=== PATIENT | female | born 1950 | race Caucasian/White ===

== ENCOUNTER → 2021-02-05 10:20 | Outpatient (CLI) | payer MEDICARE, SELFPAY ==
--- NOTE | ~2021-02-05 | XR_ITS ---
EXAMINATION: XR chest 2V EXAM DATE: 02/05/2021 10:36 INDICATION: R05.9 - Cough, unspecified; non smoker . TECHNIQUE: Frontal and lateral projections of the chest obtained and reviewed. There is no prior kevin dy for comparison. FINDINGS: The lungs are clear. There are no pleural effusions. The cardiomediastinal silhouette is within normal limits. There is no pneumothorax suspected. The bones and soft tissues are unremarkab le. There is tortuosity of the aorta. IMPRESSION: No acute cardiopulmonary findings. Reviewed, dictated and finalized at location B. NEER OF SYSTEM DEVELOPMENT
== END ==
PROVIDERS: PCP Internal Medicine; Visit Provider Internal Medicine
DX: R05.9 Cough, unspecified (principal)
CPT/HCPCS: 71046

== ENCOUNTER 2023-05-05 09:29 | Outpatient (CLI) | payer MEDICARE, SELFPAY ==
--- NOTE | ~2023-05-05 | MM_ITS ---
EXAMINATION: MM screening sathya BI w bucky HISTORY: Screening mammogram TECHNIQUE: Craniocaudal and mediolateral oblique 3-D tomosynthesis images were obtained and synthetic 2-D images were generated. CAD analysis was submitted and interpreted. COMPARISON: 02/02/2018 bilateral screening mammogram BREAST PARENCHYMAL COMPOSITION: There are scattered areas of fibroglandular density. FINDINGS: There is no evidence of suspicious mass, calcification, or architectural distortion to sugg est malignancy in either breast. There has been no suspicious interval change. IMPRESSION: 1. No mammographic evidence of malignancy. 2. Recommend routine screening mammography in one year. BI-RADS Category 1: Negative Reviewed, dictated and finalized at location A.
== END 2023-05-05 09:30 | disposition home or self-care (01) ==
PROVIDERS: PCP Family Medicine; Visit Provider Family Medicine
DX: Z12.31 Encounter for screening mammogram for malignant neoplasm of breast (principal)
CPT/HCPCS: 77063; 77067

== ENCOUNTER 2024-05-30 09:06 | Outpatient (CLI) | payer MEDICARE, SELFPAY ==
--- NOTE | ~2024-05-30 | DEXA_ITS ---
Bone Density Report Name: PRAVIN JIN Age: 74 Sex: Female Ethnicity: White Date of : 1950 Indication: postmenopausal; screening for osteoporosis; Referring Provider: SOPHIE JEAN Study: Bone densitometry was performed. Exam Date: May 30, 2024 Accession number: [id number] Bone Density: Region BMD T-score Z-score Classification AP Spine(L1-L4) 0.769 -2.5 -0.2 Osteoporosis Femoral Neck (Left) 0.587 -2.4 -0.4 Osteopenia Total Hip (Left) 0.678 -2.2 -0.5 Osteopenia Femoral Neck (Right) 0.541 -2.8 -0.8 Osteoporosis Total Hip (Right) 0.618 -2.7 -1.0 Osteoporosis Total Hip Mean 0.648 -2.5 -0.8 Osteopenia World Health Organization criteria for BMD impression classify patients as: Normal (T-score at or above -1.0), Osteopenia (T-score between -1.0 and -2.5), or Osteoporosis (T-score at or below -2.5). 10-year Fracture Risk: FRAX not reported because: Some T-score for Spine Total or Hip Total or Femoral Neck at or below -2.5 Clinical Information Provided by Patient: Has used the following medications: Actonel (i.e. risedronate) Patient maximum height was 65.0 Menopause Age: 51 No regular weight bearing exercise Drinks caffeinated beverages Onset of menses at age 14 Number of children 2 Impression: The patient has osteoporosis, based on the Right Femoral Neck T-score. Discussion: INCREASED RISK OF FRACTURE. BONE DENSITY IS UNDESIRABLY LOW AT ONE OR MORE SKELETAL SITES, CONSISTENT WITH POSTMENOPAUSAL OSTEOPOROSIS. This patient's lowest T-score meets the World Health Organization's (WHO) criteria for osteoporosis at one or more sites (T-score -2.5 or below). In untreated patients, the risk of osteoporotic fracture increases approximately two-fold for each 1.0 SD decrease in T-score. Low bone density is not the only risk factor for fracture; also consider factors such as patient's age, frailty or poor health, risk of falling, risk of injury, previous osteoporotic fracture, family history of osteoporosis, cigarette smoking, low body weight, etc. Not everyone with low bone mineral density has osteoporosis; osteomalacia and other metabolic bone disorders should also be considered. Patients who have osteoporosis should be evaluated for specific diseases and conditions (secondary causes) that may cause or contribute to bone loss. The [place] Association of Clinical Endocrinologists (AACE) and National Osteoporosis Foundation (NOF) recommend pharmacologic intervention for all postmenopausal women whose T-score is in this range. The patient should follow a healthful lifestyle (good nutrition with adequate calcium and vitamin D, and appropriate weight-bearing exercise). Follow-Up: Consider a repeat BMD and Vertebral Fracture Assessment (VFA) exam in 2 years or sooner if medically necessary, to reassess this patient's status. Reported by: DALE on 05/30/2024 9:54:00 AM. Reviewed, dictated and finalized at location ANuvia ROMAN
--- NOTE | ~2024-05-30 | MM_ITS ---
EXAMINATION: MM screening sathya BI w bucky HISTORY: Screening TECHNIQUE: Craniocaudal and mediolateral oblique 3-D tomosynthesis images were obtained and synthetic 2-D images were generated. CAD analysis was submitted and interpreted. COMPARISON: Comparison to multiple prior studies sequentially, with oldest reviewed study dated 01/23. BREAST PARENCHYMAL COMPOSITION: Not dense: There are scattered areas of fibroglandular density. FINDINGS: There is no evidence of suspicious mass, calcification, or architectural distortion to sugg est malignancy in either breast. There has been no suspicious interval change. IMPRESSION: 1. No mammographic evidence of malignancy. 2. Recommend routine screening mammography in one year. BI-RADS Category 1: Negative Reviewed, dictated and finalized at location A.
--- OUTSIDE RECORDS SUMMARY | 2024-05-30 09:49 | XMS_ITS | Clinical Summary ---
Author Organization [facility] Physician Office Building [address] [place] [id number] Care Team Providers Care Head Of Precision Targeting Name Role Phone Dalton Adams MD Primary Care Provider [phone] [phone] Allergies No known active allergies Medications sod picosulf-mag ox-citric ac (Clenpiq) 10 mg-3.5 gram- 12 gram/175 mL solution Take as directed 350 mL 04/21/2023 Active acetaZOLAMIDE (DIAMOX) 250 mg tabletIndicatio ns:spinal cerebellar ataxia Take 1 tablet (250 mg total) by mouth 2 (two) times a day Active Active Problems Problem Noted Date Diagnosed Date Encounter for screening colonoscopy 04/21/2023 Screen for colon cancer 10/19/2017 Overview (10/19/2017): Added automatically from request for surgery [id number] Heart murmur 08/12/2014 Edema of lower extremity 08/11/2014 Abnormal gait 03/18/2014 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 Vitamin D deficiency disease 09/30/2013 Muscle weakness of extremity 05/26/2013 Hypertension 04/26/2013 Overview (05/28/2016): Hypertension Surgical History Surgery Date Site/Laterality Comments BACK SURGERY 02/23/2010 - 02/22/2011 back surgery SECTION section SECTION BACK SURGERY Back Surgery BACK SURGERY Lower Back Surgery - DIAM stabilizer surgery L4-L5 (Added by TW Conv) COLONOSCOPY last colonoscopy 2008 COLONOSCOPY 05/25/2023 Medical History Medical History Date Comments Ataxia SPINAL CEREBELLA R ATAXIA Family History Medical History Relation Name Comments Brain cancer Father Brain tumor - ( Added by TW Conv) Stroke Mother Family history of cerebrovascular accident - (Added by TW Conv) Stroke Other Family history of Stroke; Relation Name Status Comments Father Mother Other Social History Tobacco Use Types Packs/Day Years Used Date Smoking Tobacco: Never Smokeless Tobacco: Never Alcohol Use Standard Drinks/Week Comments No 0 (1 standard drink = 0.6 oz pur e alcohol) Personal Safety Answer Date Recorded Have you ever been in or are you currently in a harmful physical or emotional relationship or is someone making you feel afraid or unsafe? Denies 05/25/2023 Comments Unknown Sex and Gender Information Value Date Recorded Sex Assigned at Not on file Legal Sex Female 2:23 AM CLINICAL RN LIAISON Gender Identity Not on file Sexual Orientation Not on file Obstetrics History Last Filed Vital Signs Vital Sign Reading Time Taken Comments Blood Pressure 125/88 05/25/2023 9:20 AM CDT Pulse 76 05/25/2023 9:20 AM CDT Temperature 37.1 C (98.7 F) 05/25/2023 8:55 AM CDT Respiratory Rate 18 05/25/2023 9:20 AM CDT Oxygen Saturation 97% 05/25/2023 9:20 AM CDT Inhaled Oxygen Concentration - - Weight 86.2 kg (190 lb) 05/25/2023 8:15 AM CDT Height 165.1 cm (5' 5 ) 05/25/2023 8:15 AM CDT Body Mass Index 31.62 05/25/2023 8:15 AM CDT Plan of Treatment Health Maintenance Due Date Last Done Comments Depression Screening 1950 Fall Risk Assessment 1950 Hepatitis C Screening 1950 Osteoporosis Screening-Bone Density Scan 1950 DTaP/Tdap/Td Vaccine (1 - Tdap) 04/24/1962 Hepatitis B Screening 04/24/1969 Breast Cancer Screening-Mammogram 08/02/2013 013 Well Visit 65+ 04/24/2016 Zoster Vaccine (3 of 3) 03/06/2023 01/09/2023, 12/24 Covid-19 Vaccine ( season) 2023, 04/19/2020 Influenza Vaccine (Season Ended) 2024 11/27/19 23, 12/09/2021 Colon Cancer Screening-Colonoscopy 05/24/20332023, 11/09/2017 Pneumococcal vaccine 65+ Completed 12/09/2021 Colon Cancer Screening-CT Colonography Discontinued , 11/09/2017 Colon Cancer Screening-DNA Stool Discontinued 05/25/19 24, 11/09/2017 Colon Cancer Screening-FIT Discontinued 05/25/2023, Colon Cancer Screening-Sigmoidoscopy Discontinued 02/2023, 11/09/2017 Procedures Procedure Name Priority Date/Time Associated Diagnosis Comments COLONOSCOPY 05/25/2023 8:07 AM CDT SCREENING MAMMOGRAM Routine 08/02/2012 9 :28 AM CDT from Last 3 Months or Most Recently Relevant to Health Maintenance Results * Colonoscopy (05/25/2023 8:07 AM CDT) Anatomical Region Laterality Modality Other Narrative Procedure Note Mathew Frausto MD - 05/25/2023 8:07 AM CDT [facility] Endoscopy Lab Patient Name: Coral Story Procedure Date: 05/25/2023 8:07 AM Date of : 1950 Admit Type: Outpatient Age: 73 Gender: Female Note Status: Finalized Attending MD: Mathew Frausto M.D. Procedure Date: 05/25/2023 Procedure: Colonoscopy Indications: Screening for colorectal malignant neoplasm, Last colonoscopy: October 2017 Providers: Mathew Frausto M.D., Tiffanie Huggins, INSPECTOR PAWNSHOP DETAIL (Anesthesia Staff), Marly Nguyen RN, Venancio, Sr. Consultant Referring MD: Dalton Adams M.D. Medicines: Monitored Anesthesia Care Complications: No immediate complications. Estimated Blood Loss: Estimated blood loss: none. Procedure: Pre-Anesthesia Assessment: - Airway Examination: normal oropharyngeal airwayand neck mobility. - Respiratory Examination: clear to auscultation. - ASA Grade Assessment: III - A patient with severe systemic disease. - After reviewing the risks and benefits, thepatient was deemed in satisfactory condition to undergo the procedure. - The risks and benefits of the procedure and the sedation options and risks were discussed with the patient. All questions were answered and informed consent was obtained. After I obtained informed consent, the scope was passed under direct vision. Throughout theprocedure, the patient's blood pressure, pulse, and oxygen saturations were monitored continuously. The scopewas passed under direct vision. The Colonoscope was introduced through the anus and advanced to the the cecum, identified by the appendiceal orifice, ileocecal valve and palpation. The colonoscopy was performed with ease. The patient tolerated the procedure well. The quality of the bowelpreparation was good. The quality of the bowel preparation was evaluated using the BBPS ([place] Bowel Preparation Scale) with scores of: Right Colon = 2 (minoramount of residual staining, small fragments of stooland/or opaque liquid, but mucosa seen well), TransverseColon = 3 (entire mucosa seen well with no residual staining, small fragments of stool or opaqueliquid) and Left Colon = 3 (entire mucosa seen well with no residual staining, small fragments of stool oropaque liquid). The total BBPS score equals 8. The qualityof the bowel preparation was good. The bowelpreparation used was Clenpiq via split dose instruction. Bowel prep was administered using a split dose. Findings: The perianal and digital rectal examinations were normal. A few small-mouthed diverticula were found in the entire colon. The retroflexed view of the distal rectum and anal verge was normaland showed no anal or rectal abnormalities. Impression: - Diverticulosis in the entire examined colon. - The distal rectum and anal verge are normal on retroflexion view. - No specimens collected. Recommendation: - Discharge patient to home (ambulatory). - Repeat colonoscopy in 10 years for screening purposes. Procedure Code(s): --- Professional --- G0121, Colorectal cancer screening; colonoscopy on individual not meeting criteria for high risk Diagnosis Code(s): --- Professional --- Z12.11, Encounter for screening for malignantneoplasm of colon K57.30, Diverticulosis of large intestine without perforation or abscess without bleeding CPT copyright 2020 [employer]. All rights reserved. The codes documented in this report are preliminary and upon contour sander reviewmay be revised to meet current compliance requirements. Electronically signed by Mathew Frausto MD Mathew Frausto M.D. 05/25/2023 8:57:35 AM Number of Addenda: 0 Note Initiated On: 05/25/2023 8:07 AM Mathew Frausto MD ENDOSCOPY PROCEDURES Final Resul t * Screening Mammogram (08/02/2012 9:28 AM CDT) Anatomical Region Laterality Modality Breast N/A Mammography 08/02/2012 9:28 AM CDT Narrative 08/03/2012 12:00 PM CDT CHRIS MORGAN M.D. FINAL REPORT ACC# Date Time Exam [id number] Aug 02, 2012 09:28:00 BMV [id number] [place] Screening Mamm Technologist(s): Mari Dunne; ; EXAMINATION: Mammogram Findings: A Full-Field Digital Screening Mammogram was performed. Views obtained: bilateral craniocaudal; bilateral mediolateral oblique. Computer Aided Detection was performed with SquareClock 1.3 version 9.3. The present examination has been compared to prior imaging studies performed at [facility] on 08/04/2011 and 07/22/2007. There are scattered fibroglandular densities. There is no suspicious abnormality in either breast. IMPRESSION: Annual screening mammography is recommended. OVERALL FINAL ASSESSMENT: BI-RADS CATEGORY 1: Negative. Requested By: Yvrose Josue M.D. Dictated By: CHRIS MORGAN M.D. on Aug 03 2012 12:00P This document has been electronically signed by: CHRIS MORGAN M.D. on Aug 03 2012 12:00P Procedure Note Provider, MD Zoila - 06/20/2016 CHRIS MORGAN M.D. FINAL REPORT ACC# Date Time Exam [id number] Aug 02, 2012 09:28:00 BMV [id number] [place] Screening Mamm Technologist(s): Mari Dunne; ; EXAMINATION: Mammogram Findings: A Full-Field Digital Screening Mammogram was performed. Views obtained: bilateral craniocaudal; bilateral mediolateral oblique. Computer Aided Detection was performed with SquareClock 1.3 version 9.3. The present examination has been compared to prior imaging studies performed at [facility] on 08/04/2011 and 07/22/2007. There are scattered fibroglandular densities. There is no suspicious abnormality in either breast. IMPRESSION: Annual screening mammography is recommended. OVERALL FINAL ASSESSMENT: BI-RADS CATEGORY 1: Negative. Requested By: Yvrose Josue M.D. Dictated By: CHRIS MORGAN M.D. on Aug 03 2012 12:00P This document has been electronically signed by: CHRIS MORGAN M.D. on Aug 03 2012 12:00P us Historical Provider MD COLE MAMMO PROCEDURES Sandee l Result from Last 3 Months or Most Recently Relevant to Health Maintenance Insurance [facility] MEDICARE ADVANTAGE [facility] CHOICE PLUS [facility] [place] [address] [facility] [place] [address] Care Teams Head Of Precision Targeting Relationship Specialty Start Date End Date Dalton Adams MD PCP - General Family Practice 05/12/23
--- OUTSIDE RECORDS SUMMARY | 2024-05-30 09:49 | XMS_ITS | Clinical Summary ---
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 Gender Identity Not on file Sexual Orientation Not on file Plan of Treatment Health Maintenance Due Date Last Done Comments Colorectal Cancer Screening Colonoscopy (10 Years) 1950 Hepatitis C 04/24/1969 DTaP, Tdap and Td Vaccines ( 1 - Tdap) 04/24/1970 Mammogram Screening 1991 Zoster Vaccines (1 of 2) 04/24/2001 Dexa Scan (General) 04/24/2016 Pneumococcal Vaccine: 65+ Ye ars (1 of 1 - PCV) 04/24/2016 COVID-19 Vaccine ( - 2023-2 5 season) 2023 RSV Immunization or 60+ Years (1 - 1-dose 75+ series) 04/24/2026 Meningococcal B Vaccine Aged Out No l onger eligible based on patient's age to complete this topic Meningococcal Vaccine Aged Out No marlo lorelei eligible based on patient's age to complete this topic RSV Immunizations Under 20 Months Aged Out No longer eligible based on patient's age to complete this topic
--- OUTSIDE RECORDS SUMMARY | 2024-05-30 09:49 | XMS_ITS | Clinical Summary ---
Author Organization [facility] [employer] Address [address] [place] [address] Care Team Providers Care Rail Engineer Name Role Phone Dalton Adams MD Primary Care Provider [phone] [phone] Source Comments [facility] [employer]non-owned Affiliates and Associated Physician Practices is amultiple site organization consisting of ambulatory clinics and hospital sitesin [place], [place], [place] and [place]. This disclosure is being madepursuant to the Care Everywhere program and may not contain all information available regarding this patient. Last updated 17.[facility] [employer] Allergies No known active allergies Medications * Be aware that medications may not be up to date on this document. Alwaysverify current medications with the patient. Medication Sig Dispensed Refills Start Date End Date Status vitamin D, ergocalciferol, (Drisdol) 1.25 MG (07496 UT) capsule Take 1 (one) capsule by mouth every 7 days 01/11/2023 Active acetaZOLAMIDE (Diamox) 250 MG tabletIndications:S campbell cerebellar ataxia Take 1 (one) tablet by mouth 2 times daily Reasons: Spino cerebellar ataxia 180 tablet 5 10/28/2023 Active Encounters Date Type Department Care Team Description 03/03/2024 Travel from Last 3 Months Social History Tobacco Use Types Packs/Day Years Used Date Smoking Tobacco: Never Smokeless Tobacco: Never Sex and Gender Information Value Date Recorded Sex Assigned at Not on file Gender Identity Not on file Sexual Orientation Not on file Last Filed Vital Signs Vital Sign Reading Time Taken Comments Blood Pressure 155/82 10/28/2023 8:07 AM CDT Pulse 77 10/28/2023 8:07 AM CDT Temperature 36.4 C (97.5 F) 04/28/2023 7:57 AM BANKING REPRESENTATIVE Respiratory Rate - - Oxygen Saturation 98% 10/28/2023 8:07 AM CDT Inhaled Oxygen Concentration - - Weight 88 kg (194 lb) 04/28/2023 7:57 AM BANKING REPRESENTATIVE Height 162.6 cm (5' 4 ) 02/24/2023 8:03 AM BANKING REPRESENTATIVE Body Mass Index 33.3 02/24/2023 8:03 AM BANKING REPRESENTATIVE Plan of Treatment Upcoming Encounters Date Type Department Care Team (Late st Contact Info) Description 11/02/2024 10:00 AM CDT Office Visit [facility] - Neurology [address] [facility] [facility] [address], [place] [place] [address] Adi Higuera APRN-SERVICE PROMOTER SALESPERSON [address] [place] [id number] Health Maintenance Due Date Last Done Comments BONE DENSITY TESTING 1950 COLOGUARD (AGES 45-75) - COL ON CA SCREENING [address] COLON[address]AP[address] - COLON CA SCREENING 1950 FIT - COLON CA SCREENING 1950 FLEX SIG - COLON CA SCREENING 1950 LIPID TESTING 1950 HEPATITIS C SCREENING 04/20/1969 DTAP/TDAP/TD VACCINES (1 - Tdap) 04/24/1970 PNEUMOCOCCAL VACCINE 50+ (1 of 1 - PCV) 04/24/2001 ZOSTER VACCINE (1 of 2) 04/24/2001 Respiratory Syncytial Virus (RSV) Vaccine Pt: or over 60 yrs (1 - Risk 60-74 years 1-dose series) 2011 MAMMOGRAM 08/02/2014 08/02/2012 COVID-19 VACCINE ( - 2023-2 5 season) 2023 INFLUENZA VACCINE (#1) 2023 DEPRESSION SCREENING 02/24/2024 MEDICARE AWV CALENDAR YEAR 2024 COLONOSCOPY - COLON CA SCREENING 05/24/2033 05/25/2023, 11/09/2017 Colorectal Cancer Screening 05/24/2033 HEPATITIS B VACCINE Aged Out No longe r eligible based on patient's age to complete this topic HIB VACCINE Aged Out No longer eligi ble based on patient's age to complete this topic HPV VACCINE Aged Out No longer eligi ble based on patient's age to complete this topic MENINGOCOCCAL (Group B) VACCINE SHARED DECISION-MAKING Aged Out No longer eligible based on patient's age to complete this topic MENINGOCOCCAL GROUPS A/C/Y/W VACCINE Aged Out No longer eligible b ased on patient's age to complete this topic Care Teams Rail Engineer Relationship Specialty Start Date End Date Dalton Adams MD [address] [facility] [place] [phone] PCP - General Family Medicine 02/24/23
--- OUTSIDE RECORDS SUMMARY | 2024-05-30 09:49 | XMS_ITS | Referral Summary ---
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 Vitamin D deficiency disease 09/30/2013 Muscle weakness of extremity 05/26/2013 Hypertension 04/26/2013 Overview (05/28/2016): Hypertension Social History Tobacco Use Types Packs/Day Years [...] on file 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 Gender Identity Not on file Sexual Orientation [...] 05/25/2023 8:15 AM CDT Plan of Treatment Not on file Procedures Procedure Name Priority Date/Time Associated Diagnosis Comments COLONOSCOPY 05/25/2023 8:07 AM CDT SCREENING MAMMOGRAM Routine 08/02/2012 9 :28 AM CDT from Last 3 Months or Most Recently Relevant to Health Maintenance Results * Colonoscopy (05/25/2023 8:07 AM CDT) Anatomical Region Laterality Modality Other Narrative Procedure Note Mathew Frausto MD - 05/25/2023 8:07 AM CDT [facility] Endoscopy Lab Patient Name: Coral Story Procedure Date: 05/25/2023 8:07 AM Date of : 1950 Admit Type: Outpatient Age: 73 Gender: Female Note Status: Finalized Attending MD: Mathew Frausto M.D. Procedure Date: 05/25/2023 Procedure: Colonoscopy Indications: Screening for colorectal malignant neoplasm, Last colonoscopy: October 2017 Providers: Mathew Frausto M.D., Tiffanie Huggins CRNA (Anesthesia Staff), Marly Nguyen RN, Venancio, Disability Representative Referring MD: Dalton Adams M.D. Medicines: Monitored [...] bowel preparation was evaluated using the BBPS ([place] Bowel Preparation Scale) with scores of: Right [...] or abscess without bleeding CPT copyright 2020 [employer]. All rights reserved. The codes documented in this report are preliminary and upon vocal music instructor reviewmay be revised to meet current compliance requirements. Electronically signed by Mathew Frausto MD Mathew Frausto M.D. 05/25/2023 8:57:35 AM Number of Addenda: 0 Note Initiated On: 05/25/2023 8:07 AM us Mathew Frausto MD ENDOSCOPY PROCEDURES Final Resul t * Screening Mammogram (08/02/2012 9:28 AM CDT) Anatomical Region Laterality Modality Breast N/A Mammography 08/02/2012 9:28 AM CDT Narrative 08/03/2012 12:00 PM CDT CHRIS MORGAN M.D. FINAL REPORT ACC# Date Time Exam [id number] Aug 02, 2012 09:28:00 BMV [id number] [place] Screening Mamm Technologist(s): Mari Dunne; ; EXAMINATION: Mammogram Findings: A Full-Field Digital Screening Mammogram was performed. Views obtained: bilateral craniocaudal; bilateral mediolateral oblique. Computer Aided Detection was performed with Altair Prep 1.3 version 9.3. The present examination has been compared to prior imaging studies performed at [facility] on 08/04/2011 and 07/22/2007. [...] M.D. FINAL REPORT ACC# Date Time Exam [id number] Aug 02, 2012 09:28:00 BMV [id number] [place] Screening Mamm Technologist(s): Mari Dunne; ; EXAMINATION: Mammogram Findings: A Full-Field Digital Screening Mammogram was performed. Views obtained: bilateral craniocaudal; bilateral mediolateral oblique. Computer Aided Detection was performed with Altair Prep 1.3 version 9.3. The present examination has been compared to prior imaging studies performed at [facility] on 08/04/2011 and 07/22/2007. There are scattered fibroglandular densities. There is no suspicious abnormality in either breast. IMPRESSION: Annual screening mammography is recommended. OVERALL FINAL ASSESSMENT: BI-RADS CATEGORY 1: Negative. Requested By: Yvrose Josue M.D. Dictated By: CHRIS MORGAN M.D. on Aug 03 2012 12:00P This document has been electronically signed by: CHRIS MORGAN M.D. on Aug 03 2012 12:00P Historical Provider MD COLE MAMMO PROCEDURES Sandee l Result from Last 3 Months or Most Recently Relevant to Health Maintenance [facility] Address: [address] [address] [place] [address] [facility] CHOICE [facility]US [facility] H[facility]/PPO Address: [address] [address] [place] [address] [facility]IC[facility]AGE [facility] Address: [address] [address] [place] [address] [facility]ICE PLUS [facility]/PPO Address: [address] [address] [place] [address] Care Teams Picture Copyist Relationship Specialty Start Date End Date Dalton Adams MD PCP - General Family Practice 05/12/23
--- OUTSIDE RECORDS SUMMARY | 2024-05-30 09:49 | XMS_ITS | Encounter Summary ---
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
== END 2024-05-30 09:07 | disposition home or self-care (01) ==
LOC: ANHIMG 09:09
PROVIDERS: PCP Family Medicine; Visit Provider Family Medicine
DX: Z12.31 Encounter for screening mammogram for malignant neoplasm of breast (principal); N95.9 Unspecified menopausal and perimenopausal disorder; M81.0 Age-related osteoporosis without current pathological fracture; M85.852 Other specified disorders of bone density and structure, left thigh; M85.851 Other specified disorders of bone density and structure, right thigh
CPT/HCPCS: 77063; 77067; 77080

== ENCOUNTER 2024-08-25 12:12 | Outpatient (CLI) | payer MEDICARE, SELFPAY ==
--- NOTE | ~2024-08-25 | XR_ITS ---
XR abdomen/kub 1V Ordering provider: Dalton Adams MD History: . K21.9 - Gastro-esophageal reflux disease without esophagitis . Comparison: None. FINDINGS: BOWEL: Nonobstructive bowel gas pattern. ORGANOMEGALY: None. SIGNIFICANT PATHOLOGIC CALCIFICATIONS: None. OTHER: No free air is seen under the diaphragm. Mild dextroscoliosis. Degenerative the spine. Metallic artifacts are projected in the mid abdomen. IMPRESSION: NO ACUTE ABDOMINAL FINDINGS. Reviewed, dictated and finalized at location A.
== END 2024-08-25 12:13 | disposition home or self-care (01) ==
LOC: MICIMG 12:13
PROVIDERS: PCP Family Medicine; Visit Provider Family Medicine
DX: K21.9 Gastro-esophageal reflux disease without esophagitis (principal)
CPT/HCPCS: 74018

== ENCOUNTER 2024-09-08 02:22 | Day surgery (SDC) | payer MEDICARE, SELFPAY ==
[2024-09-02 15:26] VITALS: BMI 33.7
--- OUTSIDE RECORDS SUMMARY | 2024-09-08 02:34 | XMS_ITS | Continuity of Care Document ---
Author Organization [facility] Address [address] [place] [address] [address] [place] [address] Phone Care Team Providers Care Banking And Finance Instructor Name Role Phone Leonardo Rios Unavailable Unavailable Advance Directives Directive Yes / No Effective Date File Name No Information Encounters Encounter Description Practice Location Reason(s) For Visit Diagnoses Date Provider Providers Copied on Encounter [facility], [address], [place], [place], [id number], [place] tel:[phone] [facility] No Information Julian-0 [phone] Doisy Edward. [address] , [address], [place], [address], [place]. tel:[phone] Family History Family Member Type Diagnosis Age At Onset No Information Payers Payer name Insurance type Covered republican ID Authoriza tion(s) No Information Social History Type Description Quantity Date Captured Comments Sex Female Smoking Status No Information Chief Complaint And Reason For Visit No Information Reason For Referral Reason For Referral No Information History Of Present Illness Encounter Date Complaint History Of Prese nt Illness No Information Functional Status Date Functional Assessmen t No Information Instructions Date Instruction Additional Infor mation No Information Assessments Type Assessment Date No Information Patient Care Teams Name Effective Dates (start - stop) Status Members No Information
--- OUTSIDE RECORDS SUMMARY | 2024-09-08 02:34 | XMS_ITS | Clinical Summary ---
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
--- OUTSIDE RECORDS SUMMARY | 2024-09-08 02:36 | XMS_ITS | Referral Summary ---
Author Organization [facility] [address] [place] [address] Care Team Providers Care Cylinder Die Machine Operator Name Role Phone Dalton Adams MD Primary Care Provider [phone] Allergies No known active allergies Medications sod [...] (10/19/2017): Added automatically from request for surgery [id number] Heart murmur 08/12/2014 Edema of lower extremity [...] on file Legal Sex Female 2:23 AM CHEMIST STEROIDS Gender Identity Not on file Sexual Orientation [...] 8:15 AM CDT Height 165.1 cm (5' 5) 05/25/2023 8:15 AM CDT Body Mass Index [...] Frausto MD - 05/25/2023 8:07 AM CDT [facility] Patient Name: Coral Story Procedure Date: 05/25/2023 8:07 AM Date of : 1950 Admit Type: Outpatient Age: 73 Gender: Female Note Status: Finalized Attending MD: Mathew Frausto M.D. Procedure Date: 05/25/2023 Procedure: Colonoscopy Indications: Screening for colorectal malignant neoplasm, Last colonoscopy: October 2017 Providers: Mathew Frausto M.D., Tiffanie Huggins CRNA (Anesthesia Staff), Marly Nguyen RN, Venancio, Religious Ritual Slaughterer Referring MD: Dalton Adams M.D. Medicines: Monitored [...] bowel preparation was evaluated using the BBPS ([place] Bowel Preparation Scale) with scores of: Right [...] or abscess without bleeding CPT copyright 2020 [employer]. All rights reserved. The codes documented in this report are preliminary and upon content creation manager reviewmay be revised to meet current compliance [...] M.D. FINAL REPORT ACC# Date Time Exam [id number] Aug 02, 2012 09:28:00 BMV [id number] [place] Screening Mamm Technologist(s): Mari Dunne; ; EXAMINATION: Mammogram Findings: A Full-Field Digital Screening Mammogram was performed. Views obtained: bilateral craniocaudal; bilateral mediolateral oblique. Computer Aided Detection was performed with Power Union 1.3 version 9.3. The present examination has been compared to prior imaging studies performed at [facility] on 08/04/2011 and [...] M.D. FINAL REPORT ACC# Date Time Exam [id number] Aug 02, 2012 09:28:00 BMV [id number] [place] Screening Mamm Technologist(s): Mari Dunne; ; EXAMINATION: Mammogram Findings: A Full-Field Digital Screening Mammogram was performed. Views obtained: bilateral craniocaudal; bilateral mediolateral oblique. Computer Aided Detection was performed with Power Union 1.3 version 9.3. The present examination has been compared to prior imaging studies performed at [facility] on 08/04/2011 and [...] Most Recently Relevant to Health Maintenance [facility] ADVANTAGE [facility] Address: [address] [address] [place] [address] [facility] CHOICE PLUS [facility] H[facility]/PPO Address: [address] [address] [place] [address] [facility] MEDIC[facility] ADVANTAGE [facility] Address: [address] [address] [place] [address] CHOICE PLUS [facility] HMO/PPO Address: [address] [address] [place] [address] Care Teams Cylinder Die Machine Operator Relationship Specialty Start Date End Date Dalton Adams MD PCP - General Family Practice 05/12/23
--- OUTSIDE RECORDS SUMMARY | 2024-09-08 02:36 | XMS_ITS | Clinical Summary ---
Author Organization [facility] Address [address] [place] [address] Care Team Providers Care Medical Nurse Name Role Phone Dalton Adams MD Primary Care Provider [phone] Source Comments [facility],non-owned Affiliates and Associated Physician Practices is amultiple site organization consisting of ambulatory clinics and hospital sitesin [place], [place], [place] and [place]. This disclosure is being madepursuant to the Care Everywhere program and may not contain all information available regarding this patient. Last updated 17.[facility] Allergies No known active allergies Medications * Be aware that medications may not be up to date on this document. Alwaysverify current medications with the patient. vitamin D, ergocalciferol, (Drisdol) 1.25 MG (43962 UT) capsule Take 1 (one) capsule by mouth every 7 days 3 Active acetaZOLAMIDE (Diamox) 250 MG tabletIndicatio ns:Spino cerebellar ataxia Take 1 (one) tablet by mouth 2 times daily Reasons: Spino cerebellar ataxia 180 tablet 5 4 Active Social History Tobacco Use Types Packs/Day Years Used Date Smoking Tobacco: Never Smokeless Tobacco: Never Comments Unknown Sex and Gender Information Value Date Recorded Sex Assigned at Not on file Legal Sex Female 11:15 AM CDT Gender Identity Not on file Sexual Orientation Not on file Last Filed Vital Signs Vital Sign Reading Time Taken Comments Blood Pressure 155/82 10/28/2023 8:07 AM CDT Pulse 77 10/28/2023 8:07 AM CDT Temperature 36.4 C (97.5 F) 04/28/2023 7:57 AM SELVAGE MACHINE OPERATOR Respiratory Rate - - Oxygen Saturation 98% 10/28/2023 8:07 AM CDT Inhaled Oxygen Concentration - - Weight 88 kg (194 lb) 04/28/2023 7:57 AM SELVAGE MACHINE OPERATOR Height 162.6 cm (5' 4) 02/24/2023 8:03 AM SELVAGE MACHINE OPERATOR Body Mass Index 33.3 02/24/2023 8:03 AM SELVAGE MACHINE OPERATOR Plan of Treatment Upcoming Encounters Date Type Department Care Team (Late st Contact Info) Description 11/02/2024 10:00 AM CDT Office Visit [facility] - [facility]rology [address] [facility] [facility] [place] [id number] Adi Higuera, CHEMA-GARBAGE COLLECTOR DRIVER [address] [address] Health Maintenance Due Date Last Done Comments BONE DENSITY TESTING 1950 COLOGUARD (AGES 45-75) - COL ON CA SCREENING 1950 CT COLONOGRAPHY - COLON CA SCREENING [...] VACCINE ( - 2023-2 5 season) 2023 DEPRESSION SCREENING 02/24/2024 MEDICARE AWV CALENDAR YEAR 2024 INFLUENZA VACCINE (#1) 2024 COLON MONITORING 05/24/2033 05/25/2023, 11/09/2017 COLONOSCOPY - COLON CA SCREENING 05/24/2033 05/25/2023, [...] on patient's age to complete this topic Insurance [facility] [place] [address] Care Teams Medical Nurse Relationship Specialty Start Date End Date Dalton Adams MD [address] [place] [address] PCP - General Family Medicine 02/24/23
--- OUTSIDE RECORDS SUMMARY | 2024-09-08 02:36 | XMS_ITS | Encounter Summary ---
Author Organization [facility] Address [address] [place] [address] Care Team Providers Care Broke Beater Name Role Phone Unavailable Primary Care Provider Unavailabl e Encounter Details Date Type Department Care Team (Late st Contact Info) Description 05/09/2017 Abstract [facility] CONVERSION [address] [place] [address] , Generic Conversion, Social History Tobacco Use Types Packs/Day Years Used Date Smoking Tobacco: Never Assessed Comments Unknown Sex and Gender Information Value Date Recorded Sex Assigned at Not on file Legal Sex Female 5:58 PM MICROSOFT EXCHANGE ADMINISTRATOR Gender Identity Not on file Sexual Orientation Not on file documented as of this encounter Plan of Treatment Not on file documented as of this encounter Visit Diagnoses Not on filedocumented in this encounter
--- OUTSIDE RECORDS SUMMARY | 2024-09-08 02:36 | XMS_ITS | Clinical Summary ---
Author Organization [facility] [address] [place] [address] Care Team Providers Care Facepiece Line Supervisor Name Role Phone Dalton Adams MD Primary Care Provider [phone] Allergies No known active allergies Medications sod [...] (10/19/2017): Added automatically from request for surgery [id number] Heart murmur 08/12/2014 Edema of lower extremity [...] on file Legal Sex Female 2:23 AM WELDING PANTOGRAPH OPERATOR Gender Identity Not on file Sexual [...] Frausto MD - 05/25/2023 8:07 AM CDT [facility] Patient Name: Coral Story Procedure Date: 05/25/2023 8:07 AM Date of : 1950 Admit Type: Outpatient Age: 73 Gender: Female Note Status: Finalized Attending MD: Mathew Frausto M.D. Procedure Date: 05/25/2023 Procedure: Colonoscopy Indications: Screening for colorectal malignant neoplasm, Last colonoscopy: October 2017 Providers: Mathew Frausto M.D., Tiffanie Huggins, UNDERWRITER (Anesthesia Staff), Marly Nguyen RN, Venancio, Dough Molder Referring MD: Dalton Adams M.D. Medicines: Monitored [...] bowel preparation was evaluated using the BBPS ([place] Bowel Preparation Scale) with scores of: Right [...] or abscess without bleeding CPT copyright 2020 [employer]. All rights reserved. The codes documented in this report are preliminary and upon day haul or farm charter bus driver reviewmay be revised to meet current compliance [...] M.D. FINAL REPORT ACC# Date Time Exam [id number] Aug 02, 2012 09:28:00 BMV [id number] [place] Screening Mamm Technologist(s): Mari Dunne; ; EXAMINATION: Mammogram Findings: A Full-Field Digital Screening Mammogram was performed. Views obtained: bilateral craniocaudal; bilateral mediolateral oblique. Computer Aided Detection was performed with Social Recruiting 1.3 version 9.3. The present examination has been compared to prior imaging studies performed at [facility] on 08/04/2011 and 07/22/2007. [...] M.D. FINAL REPORT ACC# Date Time Exam [id number] Aug 02, 2012 09:28:00 BMV [id number] [place] Screening Mamm Technologist(s): Mari Dunne; ; EXAMINATION: Mammogram Findings: A Full-Field Digital Screening Mammogram was performed. Views obtained: bilateral craniocaudal; bilateral mediolateral oblique. Computer Aided Detection was performed with Social Recruiting 1.3 version 9.3. The present examination has been compared to prior imaging studies performed at [facility] on 08/04/2011 and 07/22/2007. [...] Most Recently Relevant to Health Maintenance Insurance [facility] MEDICARE ADVANTAGE [facility] CHOICE PLUS [facility] [place] [address] [facility] [place] [address] Care Teams Facepiece Line Supervisor Relationship Specialty Start Date End Date Dalton Adams MD PCP - General Family Practice 05/12/23
[2024-09-08 10:28] VITALS: BP 170/73; PULSE 79; RESP 18; TEMP 36.7; O2SAT 98
[2024-09-08] MEDS: LACTATED RINGERS 1,000 ML 150 ML IV CONT (10:29)
--- NOTE | 2024-09-08 10:33 | PM.IMHP ---
H&P: HPI History of Present Illness Date/Time: 09/08/24 10:33 Chief Complaint: GERD Narrative: this patient has been suffering from GERD for more than 1 year, partially relieved by pantoprazole 40 mg q.d.. She is referred for EGD. She denies dysphagia or unintentional weight loss. She has an underlying diagnosis of spinocerebellar ataxia. Review of Systems Review of Systems: All systems reviewed & are unremarkable except as noted in HPI and below PMFSH Family History Family History Mother Heart disease Father Kidney infection Social History Social History Smoking status: Never smoker Second hand tobacco smoke exposure: No Alcohol intake: never Substance use: never Substance use type: does not use Lack of Transportation: No Lack of Food: Sometimes True Current Housing: I Have Housing Concerned About Future Housing: No Difficulty Paying Gas/Electric Bills: No Difficulty Paying for Meds: No Currently Unemployed: No Education: High School Diploma/GED Difficulty w/ Childcare or Family Care: No Living arrangements: with family Additional living arrangements comments: with sp Occupation/Education: unemployed Meds Home Medications and Allergies Home Medications ?Medication ?Instructions ?Recorded ?Confirmed ?Type acetazolamide 250 mg tablet 250 mg PO Q12H 07/08/23 09/08/24 History hydrochlorothiazide 12.5 mg capsule See Rx Instructions .Route 10/28/23 09/08/24 Rx .COMPLEX #90 caps pantoprazole 40 mg tablet,delayed 40 mg PO QAM 8 weeks #56 tabs 08/15/24 09/08/24 Rx release denosumab 60 mg/mL subcutaneous 60 mg subcut [id number] #1 mL 08/23/24 09/02/24 Rx syringe (Prolia) Allergies Allergy/AdvReac Type Severity Reaction Status Date / Time No Known Allergies Allergy Mild Verified 09/02/24 15:22 Vital Signs Vital Signs - 24 hr 09/08/24 10:28 Temperature 98.1 F Pulse Rate 79 Respiratory Rate 18 Blood Pressure 170/73 H Pulse Oximetry 98 Oxygen Delivery Room Air Exam Const: General: cooperative and healthy appearing Resp: Effort & Inspection: normal respiratory effort and able to speak in complete sentences Auscultation: clear to auscultation bilaterally Cardio: Rate: regular rate Rhythm: regular rhythm GI: Inspection: normal to inspection GI Palp: No No hepatosplenomegaly present Auscultation: normal bowel sounds Rectal Exam: deferred Skin: General skin exam: normal color Psych: Appearance: grossly normal Mental Status: mental status grossly normal Assessment and Plan Assessment and plan (1) Chronic GERD: Code(s): K21.9 - Gastro-esophageal reflux disease without esophagitis Status: Acute Assessment and Plan: The patient is deemed a good candidate for the procedure. Consent signed. Will proceed.
--- NOTE | 2024-09-08 10:35 | WPDANESEPPF ---
Anes - Initial Pre Proc Eval Procedure: Operation Date: 09/08/24 11:30 Proposed Procedures p Esophagogastroduodenoscopy - Fernando Black MD Date/Time: 09/08/24 10:35 Surgeon: Fernando Black MD Pre Op Diagnosis: Gastro esophageal reflux disease without esophagit Patient Data Age: 74 Gender: F Height: 1.65 m Weight: 90.3 kg Last Vital Signs Temp 98.1 F 09/08/24 10:28 Pulse 79 09/08/24 10:28 Resp 18 09/08/24 10:28 BP 170/73 H 09/08/24 10:28 Pulse Ox 98 09/08/24 10:28 O2 Del Method Room Air 09/08/24 10:28 Allergies Allergy/AdvReac Type Severity Reaction Status Date / Time No Known Allergies Allergy Mild Verified 09/02/24 15:22 Home Medications ?Medication ?Instructions ?Recorded ?Confirmed ?Type acetazolamide 250 mg tablet 250 mg PO Q12H 07/08/23 09/08/24 History hydrochlorothiazide 12.5 mg capsule See Rx Instructions .Route 10/28/23 09/08/24 Rx .COMPLEX #90 caps pantoprazole 40 mg tablet,delayed 40 mg PO QAM 8 weeks #56 tabs 08/15/24 09/08/24 Rx release denosumab 60 mg/mL subcutaneous 60 mg subcut [id number] #1 mL 08/23/24 09/02/24 Rx syringe (Prolia) Patient hx anesthesia problems: none Family hx anesthesia problems: none Results Review: All pre-operative results and documents have been reviewed as part of the pre-operative evaluation. [facility] Family History Family History Mother Heart disease Father Kidney infection Social History Social History Smoking status: Never smoker Second hand tobacco smoke exposure: No Alcohol intake: never Substance use: never Substance use type: does not use Lack of Transportation: No Lack of Food: Sometimes True Current Housing: I Have Housing Concerned About Future Housing: No Difficulty Paying Gas/Electric Bills: No Difficulty Paying for Meds: No Currently Unemployed: No Education: High School Diploma/GED Difficulty w/ Childcare or Family Care: No Living arrangements: with family Additional living arrangements comments: with sp Occupation/Education: unemployed Anes - Eval Final PreProcedure Day of Procedure 09/08/24 10:35 Patient weight: obese Lungs: normal air movement Airway: Mallampati scale class II Neurological: alert and oriented Last oral intake: >/= 8 hours ASA classification: III Emergent: no Anesthetic plan: proceed Anesthesia type and monitoring: general GIVS and standard monitoring Results Review: All pre-operative results and documents have been reviewed as part of the pre-operative evaluation. BMI 33, spinal cerebellar ataxia. GERD. Informed Consent: The patient's anesthetic plan and its attendant risks and benefits were discussed with the patient/family/POA. Questions were solicited and answers provided to the satisfaction of the patient/family/POA.
[2024-09-08] MEDS: SIMETHICONE ORAL SUSPENSION 20 MG/0.3 ML 30 ML BOTTLE 1.8 ML PO (10:36)
--- NOTE | 2024-09-08 10:50 | S_PTH ---
PATIENT: Coral Story LOC: [facility] U#:[id number] AGE/SX: 74/F ROOM: RE09/08/[address]: Fernando Black MD : 1950 BED: DIS: 09/08/2024 SPEC #: [id number] RECD: 09/08/24 11:59 STATUS: MARIBEL REQ #: [id number] SEE: 09/08/24 10:[address]: Fernando Black DEPT: [facility] Surgical RECD BY: Shadia Dumont ENTERED: 09/08/24 12:00 SP TYPE: Surgical OTHR DR: Dalton Adams MD Tissues: A - Gastric Biopsy B - Gastric Biopsy Procedures: Hematoxylin and Eosin Stain Gross and Microscopic Level 4
[2024-09-08 10:55] VITALS: BP 133/64; PULSE 74; RESP 17; O2SAT 96
[2024-09-08 11:05] VITALS: BP 132/59; PULSE 75; RESP 16; O2SAT 96
[2024-09-08 11:15] VITALS: BP 138/66; PULSE 74; RESP 17; O2SAT 98
[2024-09-08 11:56] LABS: HPYLORIRESULT Positive (Negative)
--- NOTE | 2024-09-08 12:02 | SUR.PHASEII ---
notified of patients positive h.pylori
--- NOTE | 2024-09-08 13:03 | SUR.PHASEII ---
After addressing with Dr. Black, the H.Pylori is negative.
== END 2024-09-08 11:30 | disposition home or self-care (01) ==
PROVIDERS: PCP Family Medicine; Referring Provider Family Medicine; Visit Provider Internal Medicine Gastroenterology
PROC: 0DJ08ZZ Inspection of Upper Intestinal Tract, Via Natural or Artificial Opening Endoscopic (ICD-10-PCS; CPT 43239; principal; 2024-09-08 11:30)
DX: K25.3 Acute gastric ulcer without hemorrhage or perforation (principal); K29.50 Unspecified chronic gastritis without bleeding; K44.9 Diaphragmatic hernia without obstruction or gangrene; K22.2 Esophageal obstruction; K21.9 Gastro-esophageal reflux disease without esophagitis; E66.9 Obesity, unspecified; Z68.33 Body mass index [BMI] 33.0-33.9, adult
CPT/HCPCS: 43239; 87081; 88305; J2003; J2704; J7040; J7120

== ENCOUNTER 2024-09-09 11:51 | Outpatient (CLI) | payer MEDICARE, SELFPAY ==
--- NOTE | ~2024-09-09 | XR_ITS ---
Lumbosacral Spine: AP, oblique, and lateral views Clinical History: Pain Findings: There is dextroscoliosis. 5 mm anterolisthesis of L4 over L5 present. There is extensive fa cet arthropathy throughout the lumbar spine. There are mild degenerative disc changes. There is moder ate compression fracture of T12, with mild compression fracture of L1. Probable minimal compression f racture of L2. The sacroiliac joints are normally outlined. Impression: Compression fractures of T12, L1, L2, as above. Moderate degenerative spondylosis. 5 mm anterolisthesis of L4 over L5. Reviewed, dictated and finalized at location M. Impression: Compression fractures of T12, L1, L2, as above. Moderate degenerative spondylosis. 5 mm anterolisthesis of L4 over L5.
== END 2024-09-09 11:52 | disposition home or self-care (01) ==
PROVIDERS: PCP Family Medicine; Visit Provider Family Medicine
DX: M54.50 Low back pain, unspecified (principal); S22.080A Wedge compression fracture of T11-T12 vertebra, initial encounter for closed fracture; M43.06 Spondylolysis, lumbar region
CPT/HCPCS: 72110

== ENCOUNTER 2024-09-15 15:34 | Outpatient (CLI) | payer MEDICARE, SELFPAY ==
--- NOTE | ~2024-09-15 | CT_ITS ---
EXAMINATION: CT thoracic spine wo con, CT lumbar spine wo con DATE: 09/15/2024 16:00 INDICATION: Wedge compression fracture at the T11-T12 vertebrae. TECHNIQUE: 1. Computed tomography (CT) of the thoracic spine was performed without intravenous contrast. Automat ed exposure control and iterative reconstruction technique were employed. The dose-length product was 826.67 (accession [id number]), 867.91 (accession [id number]) mGy-cm. 2. CT of the lumbar spine was performed without intravenous contrast. Automated exposure control and iterative reconstruction technique were employed. The dose length product was 867.91 mGy-cm. COMPARISON: None FINDINGS: Thoracic spine: 12 degrees thoracic dextroscoliosis. Sagittal alignment is normal. Age-indeterminate but likely subac [place] T12 burst fracture with 40% central vertebral body height loss and with sclerotic but non cortica rafa margins along the horizontal compression fracture plane underlying the superior endplate. There i s 2 mm retropulsion contributing to mild central canal stenosis. Schmorl's node along the superior en dplate of T3. Chronic mild likely physiologic anterior wedging at T11. Additional chronic mild anteri or wedging at T7 and T8. Moderate disc height loss at C5-C6, C6-C7 and at T7-T8. No central canal clive nosis at the retropulsion at T12. Mild disc height loss at the remaining thoracic levels. Severe face t osteoarthritis on the right at T3-T4 and on the left at T5-T6. Mild to moderate facet osteoarthriti s the remaining thoracic levels. There is minimal to mild neural foraminal stenosis at multiple level s throughout the thoracic spine. Mild bilateral dependent and basilar atelectasis. Calcified left low er lobe nodule along with calcified mediastinal lymph node and several small calcified hepatic nodule and multiple small calcified splenic nodules, all consistent with old granulomatous disease. Small s liding-type hiatal hernia. Paravertebral soft tissues are otherwise unremarkable. Lumbar spine: 12 degrees lumbar dextrocurvature scoliosis. 4 mm anterolisthesis L4 on L5. Chronic L2 burst fracture with 40% anterior to central vertebral body height loss and with 2 mm retropulsion at the inferior a spect of the posterior vertebral body. The remaining more caudal lumbar vertebral body heights are no rmal. Mild disc height loss with vacuum phenomena at L3-L4 and mild to moderate right-sided disc heig ht loss with vacuum phenomena at L4-L5. Partial resection of the spinous process of L4 with placement of an interspinous process devices at L4-L5. Moderate bilateral sacroiliac osteoarthritis. Paraverte bral soft tissues are unremarkable. The following disc levels are specifically discussed: T12-L1: The disc does not extend beyond the endplate margin. There is mild bilateral facet joint oste oarthritis. There is mild left neural foraminal stenosis. There is no central canal stenosis. L1-L2: 2 mm retropulsion of the inferior aspect of the L2 vertebral body. The discs do not extend bey ond the endplate margin. There is mild bilateral facet joint osteoarthritis. There is mild left neura l foraminal stenosis. There is mild central canal stenosis. L2-L3: Disc is mildly bulging. There is mild bilateral facet joint osteoarthritis. There is mild left neural foraminal stenosis. There is mild central canal stenosis. L3-L4: Disc is bulging. There is moderate bilateral facet joint osteoarthritis. There is mild to mode rate bilateral neural foraminal stenosis. There is mild to moderate central canal stenosis. L4-L5: Disc is bulging. There is severe bilateral facet joint osteoarthritis. There is moderate right and mild to moderate left neural foraminal stenosis. There is mild central canal stenosis. L5-S1: Disc is mildly bulging. There is moderate left and moderate to severe right facet joint osteoa rthritis. There is mild right and minimal left neural foraminal stenosis. There is no central canal s tenosis. IMPRESSION: 1. Subacute appearing T12 burst fracture with 40% central vertebral body height loss and 2 mm retropu lsion contributing to mild central canal stenosis at this level. Additional mild chronic compression fractures at T7, T8 and T11 and chronic mild L1 burst fracture 2. Mild upper thoracic dextrocurvature with mild to moderate thoracic spondylosis. 3. Mild lumbar dextrocurvature scoliosis with mild to moderate spondylosis. Reviewed, dictated and finalized at location A. IMPRESSION: 1. Subacute appearing T12 burst fracture with 40% central vertebral body height loss and 2 mm retropulsion contributing to mild central canal stenosis at this level. Additional mild chronic compression fractures at T7, T8 and T11 and chr onic mild L1 burst fracture 2. Mild upper thoracic dextrocurvature with mild to moderate thoracic spondylos is. 3. Mild lumbar dextrocurvature scoliosis with mild to moderate spondylosis.
== END 2024-09-15 15:35 | disposition home or self-care (01) ==
LOC: MICIMG 15:34
PROVIDERS: PCP Family Medicine; Visit Provider Nurse Practitioner Family
DX: S22.080A Wedge compression fracture of T11-T12 vertebra, initial encounter for closed fracture (principal); S32.010A Wedge compression fracture of first lumbar vertebra, initial encounter for closed fracture; S32.020A Wedge compression fracture of second lumbar vertebra, initial encounter for closed fracture; X58.XXXA Exposure to other specified factors, initial encounter
CPT/HCPCS: 72128; 72131

== ENCOUNTER 2024-11-09 14:29 | Outpatient (CLI) | payer MEDICARE, SELFPAY ==
--- NOTE | ~2024-11-09 | XR_ITS ---
EXAMINATION: XR ankle LT min 3V, 11/09/2024 14:55 CDT HISTORY: M25.572 - Pain in left ankle and joints of left foot COMPARISON: No comparisons available. Findings: No acute fracture or malalignment. Moderate degenerative changes. Soft tissue swelling. Impression: No acute fracture or malalignment. Reviewed, dictated and finalized at location A. Impression: No acute fracture or malalignment.
== END 2024-11-09 14:30 | disposition home or self-care (01) ==
LOC: MICIMG 14:31
PROVIDERS: PCP Family Medicine; Visit Provider Nurse Practitioner Family
DX: M25.572 Pain in left ankle and joints of left foot (principal); W19.XXXA Unspecified fall, initial encounter
CPT/HCPCS: 73610